=== PATIENT | male | born 1950 | race Caucasian/White ===

== ENCOUNTER 2017-01-28 10:39 | Emergency (ER) | payer OTHER ==
[~2017-01-28] VITALS: Ht 170.2 cm; Wt 70.3 kg
[2017-01-28 10:42] VITALS: BP 155/77
--- NOTE | 2017-01-28 11:12 | ED THROAT/DENTAL COMPLAINT ---
History of Present Illness General Chief Complaint: Sore Throat, Dental Pain Stated Complaint: TOOTH PAIN Source: patient Exam Limitations: no limitations Vital Signs & Intake/Output Vital Signs & Intake/Output Vital Signs Date Time Temp Pulse Resp B/P B/P Pulse O2 O2 Flow FiO2 Mean Ox Delivery Rate 01/28 1042 97.1 56 18 155/77 98 Room Air Allergies Coded Allergies: No Known Allergies (01/28/17) Triage Note: PT COMPLAINS OF R SIDE UPPER DENTAL PAIN FOR THE PAST 2 DAYS Triage Nurses Notes Reviewed? yes Onset: Abrupt Duration: months No Modifying Factors: none HPI: 66-year-old male comes into emergency room for further evaluation of right upper molar. Patient reports that he was kicked in the face by a horse many months ago. He's been experiencing a loose tooth up and outside is getting progressively more loose. Patient did not want to pay for the dentist because he does not have dental insurance. Patient comes in because he thought the hospital would have a dentis or maxillofacial surgeon neck and pulled the tooth. Tooth is gone progressively more loose in the right upper. He denies any fever or chills. Denies any other associated symptoms. Patient is looking to get his tooth pulled. (DIANA JAY) Past History Travel History Traveled to [place] past 21 day No Medical History Any Pertinent Medical History? see below for history Neurological: NONE EENT: NONE Cardiovascular: NONE Respiratory: NONE Gastrointestinal: NONE Hepatic: NONE Renal: NONE Musculoskeletal: NONE Psychiatric: NONE Endocrine: diabetes Blood Disorders: NONE Cancer(s): NONE SODA ROOM OPERATOR/Reproductive: NONE Surgical History Surgical History: non-contributory Psychosocial History What is your primary language Syrian Tobacco Use: Never used ETOH Use: denies use Illicit Drug Use: denies illicit drug use Family History Hx Contributory? No (DIANA JAY) Review of Systems Review of Systems Constitutional: Reports: no symptoms. EENTM: Reports: see HPI. Respiratory: Reports: no symptoms. Cardiovascular: Reports: no symptoms. GI: Reports: no symptoms. Genitourinary: Reports: no symptoms. Musculoskeletal: Reports: no symptoms. Skin: Reports: no symptoms. Neurological/Psychological: Reports: no symptoms. Hematologic/Endocrine: Reports: no symptoms. Immunologic/Allergic: Reports: no symptoms. All Other Systems: Reviewed and Negative (DIANA JAY) Physical Exam Physical Exam General Appearance: well developed/nourished Head: atraumatic Eyes: Bilateral: normal appearance. Nose: normal inspection Mouth/Throat: right upper molar loose, no swelling of gumline, no evidence of abscess, Neck: normal inspection Cardiovascular/Respiratory: no respiratory distress Back: normal inspection Neurologic/Psych: awake, alert, oriented x 3, normal gait Skin: intact, normal color Core Measures ACS in differential dx? No Severe Sepsis Present: No Septic Shock Present: No (DIANA JAY) Progress Differential Diagnosis: aspirated tooth, carious tooth, epiglottitis, Ludwigs angina, meningitis, odontogenic abscess, raf-tonsillar abscess, pharyngeal for. body, stomatitis/gingivitis, strep pharyngitis, tooth fracture Plan of Care: 01/28/2017 12:48:12 PM Patient clinically looks well. Patient was referred to dentist. Educated the patient on to his being a potential choking hazard. He needs to get in with a dentist JOHN. Return if any other concerns worsening symptoms. Understands and agrees with plan of care. (DIANA JAY) Departure Departure Disposition: HOME OR SELF CARE Condition: Stable Clinical Impression Primary Impression: Loose tooth due to trauma Referrals: [facility] ADDISON (PCP/Family) Additional Instructions: FOLLOW UP WITH DENTIST SOON POSSIBLE. RETURN IF ANY CONCERNS/WORSENING OF SYMPTOMS. THIS TOOTH NEEDS TO BE PULLED. IT COULD BE A POTENTIAL CHOCKING HAZARD IF IT IS NOT PULLED SOON POSSIBLE. Departure Forms: Customer Survey General Discharge Information LIST- DENTAL CLINIC LIST (DIANA JAY) PA/REAL ESTATE BROKER ASSOCIATE Co-Sign Statement Statement: ED Attending supervision documentation- x I saw and evaluated the patient. I have also reviewed all the pertinent lab results and diagnostic results. I agree with the findings and the plan of care as documented in the PA's/REAL ESTATE BROKER ASSOCIATE's documentation. [] I have reviewed the ED Record and agree with the PA's/REAL ESTATE BROKER ASSOCIATE's documentation. [] Additions or exceptions (if any) to the PAs/REAL ESTATE BROKER ASSOCIATE's note and plan are summarized below: [] (RIKY TENA,MIHIR)
== END 2017-01-28 11:18 ==
LOC: ERH 10:39
DX: K08.89 Other specified disorders of teeth and supporting structures (principal)